=== PATIENT | male | born 1930 | race Caucasian/White ===

== ENCOUNTER 2019-04-16 07:57 | Emergency (ER) | payer MEDICARE ==
--- NOTE | 2019-04-16 08:53 | EDM.PDOC ---
ED HPI GENERAL MEDICAL PROBLEM - General Chief Complaint: Genitourinary Problem Stated Complaint: CATHETER ISSUES Time Seen by Provider: 04/16/19 08:35 Source of Information: Reports: Patient, Family, Old Records History Limitations: Reports: No Limitations - History of Present Illness INITIAL COMMENTS - FREE TEXT/NARRATIVE: 88 yo male with an indwelling crouch has not had much urine output this morning. Sent for evaluation. No significant pain, is on Cipro currently for a UTI. Onset: Today Onset Date: 04/16/19 Duration: Hour(s):, Getting Worse Location: Reports: Pelvis (bladder) Quality: Reports: Pressure (mild) Severity: Mild Improves with: Reports: None Worsens with: Reports: Other (time catheter is plugged) Context: Reports: Other (see HPI) Associated Symptoms: Reports: No Other Symptoms Treatments CANDY PACKER: Reports: Other (see below) (none) denies Pain Score (Numeric/FACES): 0 - Related Data Allergies Allergy/AdvReac Type Severity Reaction Status Date / Time No Known Allergies Allergy Verified 04/16/19 08:04 Home Meds: Home Meds Amitriptyline [Elavil] 10 mg PO BEDTIME 04/08/19 [History] Citalopram [Citalopram HBr] 20 mg PO DAILY 04/08/19 [History] Docusate Sodium [Colace] 100 mg PO BID 04/08/19 [History] Finasteride [Proscar] 5 mg PO DAILY 04/08/19 [History] Levothyroxine [Synthroid] 100 mcg PO ACBREAKFAST 04/08/19 [History] Linaclotide [Linzess] 145 mcg PO DAILY 04/08/19 [History] Metoprolol Tartrate 50 mg PO BID 04/08/19 [History] Omeprazole 20 mg PO DAILY 04/08/19 [History] Simvastatin 80 mg PO BEDTIME 04/08/19 [History] Tamsulosin [Tamsulosin 24 Hr] 0.4 mg PO BEDTIME 04/08/19 [History] Past Medical History HEENT History: Reports: Impaired Vision Cardiovascular History: Reports: High Cholesterol, Hypertension Gastrointestinal History: Reports: Chronic Constipation Genitourinary History: Reports: Prostate Disorder, Other (See Below) Other Genitourinary History: continuous crouch catheter Psychiatric History: Reports: Depression Endocrine/Metabolic History: Reports: Hypothyroidism - Infectious Disease History Infectious Disease History: Reports: Chicken Pox - Past Surgical History Head Surgeries/Procedures: Reports: None HEENT Surgical History: Reports: Tonsillectomy Cardiovascular Surgical History: Reports: Coronary Artery Bypass Endocrine Surgical History: Reports: None Dermatological Surgical History: Reports: None Social & Family History - Tobacco Use Smoking Status *Q: Never Smoker Second Hand Smoke Exposure: No - Caffeine Use Caffeine Use: Reports: Coffee - Recreational Drug Use Recreational Drug Use: No ED ROS GENERAL - Review of Systems Review Of Systems: See Below Constitutional: Reports: No Symptoms : Reports: Other (mild bladder pressure, crouch not functioning properly.) Skin: Reports: No Symptoms ED EXAM, RENAL/ - Physical Exam Exam: See Below Exam Limited By: No Limitations General Appearance: Alert, WD/WN, No Apparent Distress (Male) Exam: Other (crouch not flowing currently.) Course - Vital Signs Text/Narrative:: Nurse deflated the catheter, pushed the catheter in a bit and reinflated the catheter and the urine flow resumed. Nearly a liter of urine produced. Last Recorded V/S: Last Vital Signs Temp 36.4 C 04/16/19 08:20 Pulse 56 L 04/16/19 08:20 Resp 21 H 04/16/19 08:20 BP 162/78 H 04/16/19 08:20 Pulse Ox 96 04/16/19 08:20 Departure - Departure Time of Disposition: 08:52 Disposition: Home, Self-Care 01 Condition: Good Clinical Impression: Crouch catheter problem Qualifiers: Encounter type: initial encounter Qualified Code(s): T83.9XXA - Unspecified complication of genitourinary prosthetic device, implant and graft, initial encounter - Discharge Information *PRESCRIPTION DRUG MONITORING PROGRAM REVIEWED*: No *COPY OF PRESCRIPTION DRUG MONITORING REPORT IN PATIENT CHRISTIAN: No Referrals: Freddy Wayne MD [Primary Care Provider] - Additional Instructions: Continue present cares/plans. Recheck as needed.
== END 2019-04-16 09:13 | disposition home or self-care (01) ==
LOC: JP.ED 07:57
DX: T83.9XXA Unspecified complication of genitourinary prosthetic device, implant and graft, initial encounter (principal); I10 Essential (primary) hypertension; E78.00 Pure hypercholesterolemia, unspecified; F32.9 Major depressive disorder, single episode, unspecified; E03.9 Hypothyroidism, unspecified; Z79.899 Other long term (current) drug therapy; Z79.890 Hormone replacement therapy
CPT/HCPCS: 99282; 99283

== ENCOUNTER 2019-04-29 18:30 | Emergency (ER) | payer MEDICARE ==
[2019-04-29] MEDS ORDERED: Lidocaine 2% Jelly 10 ML Urojet MUCMEM ONE (18:42)
--- NOTE | 2019-04-29 19:19 | EDM.PDOC ---
ED HPI GENERAL MEDICAL PROBLEM - General Chief Complaint: Genitourinary Problem Stated Complaint: MEDICAL VIA [facility] Time Seen by Provider: 04/29/19 19:18 Source of Information: Reports: Patient - History of Present Illness INITIAL COMMENTS - FREE TEXT/NARRATIVE: 88 years old male patient brought in by ambulance from the assisted living because of not able to urinate after removing the Crouch catheter today. Denies any abdominal pain or discomfort. Denies any nausea or vomiting. Denies any fever. Denies any urinary symptom other than not able to urinate. Denies any diarrhea or constipation. Denies any chest pain shortness breath. Denies any cough or fever. - Related Data Allergies Allergy/AdvReac Type Severity Reaction Status Date / Time No Known Allergies Allergy Verified 04/29/19 18:44 Home Meds: Home Meds Amitriptyline [Elavil] 10 mg PO BEDTIME 04/08/19 [History] Citalopram [Citalopram HBr] 20 mg PO DAILY 04/08/19 [History] Docusate Sodium [Colace] 100 mg PO BID 04/08/19 [History] Finasteride [Proscar] 5 mg PO DAILY 04/08/19 [History] Levothyroxine [Synthroid] 100 mcg PO ACBREAKFAST 04/08/19 [History] Metoprolol Tartrate 50 mg PO BID 04/08/19 [History] Omeprazole 20 mg PO DAILY 04/08/19 [History] Simvastatin 80 mg PO BEDTIME 04/08/19 [History] Tamsulosin [Tamsulosin 24 Hr] 0.4 mg PO BEDTIME 04/08/19 [History] Ciprofloxacin HCl 250 mg PO BID 04/29/19 [History] Sertraline HCl 25 mg PO DAILY 04/29/19 [History] Past Medical History HEENT History: Reports: Impaired Vision Cardiovascular History: Reports: High Cholesterol, Hypertension Gastrointestinal History: Reports: Chronic Constipation Genitourinary History: Reports: Prostate Disorder, Other (See Below) Other Genitourinary History: continuous crouch catheter Psychiatric History: Reports: Depression Endocrine/Metabolic History: Reports: Hypothyroidism - Infectious Disease History Infectious Disease History: Reports: Chicken Pox - Past Surgical History Head Surgeries/Procedures: Reports: None HEENT Surgical History: Reports: Tonsillectomy Cardiovascular Surgical History: Reports: Coronary Artery Bypass Endocrine Surgical History: Reports: None Social & Family History - Tobacco Use Smoking Status *Q: Former Smoker Used Tobacco, but Quit: Yes Month/Year Tobacco Last Used: 35 years - Caffeine Use Caffeine Use: Reports: Coffee - Recreational Drug Use Recreational Drug Use: No ED ROS GENERAL - Review of Systems Review Of Systems: Comprehensive ROS is negative, except as noted in HPI. ED EXAM, RENAL/ - Physical Exam Exam: See Below Exam Limited By: No Limitations General Appearance: Alert, WD/WN, No Apparent Distress Nose: Normal Inspection, Normal Mucosa, No Blood Throat/Mouth: Normal Inspection, Normal Lips, Normal Teeth, Normal Gums, Normal Oropharynx, Normal Voice, No Airway Compromise Head: Atraumatic, Normocephalic Neck: Normal Inspection, Supple, Non-Tender, Full Range of Motion Respiratory/Chest: No Respiratory Distress, Lungs Clear, Normal Breath Sounds, No Accessory Muscle Use, Chest Non-Tender Cardiovascular: Normal Peripheral Pulses, Regular Rate, Rhythm, No Edema, No Gallop, No JVD, No Murmur, No Rub GI/Abdominal: Normal Bowel Sounds, Soft, Non-Tender, No Organomegaly, No Distention, No Abnormal Bruit, No Mass (Male) Exam: Normal Inspection Course - Vital Signs Last Recorded V/S: Last Vital Signs Temp 36.5 C 04/29/19 19:08 Pulse 62 04/29/19 19:08 Resp 22 H 04/29/19 19:08 BP 122/65 04/29/19 19:08 Pulse Ox 98 04/29/19 19:08 - Orders/Labs/Meds Orders: Active Orders 24 hr Category Date Time Status Crouch Catheter Insertion [Insert Urinary Catheter] [OM. Care 04/29/19 19:15 Ordered PC] Q24H Urinary Catheter Assessment [RC] ASDIRECTED Care 04/29/19 19:03 Active Labs: Laboratory Tests 04/29/19 Range/Units 19:02 Urine Color Yellow (YELLOW) Urine Appearance Cloudy A (CLEAR) Urine pH 5.5 (5.0-8.0) Ur Specific [place] 1.025 (1.008-1.030) Urine Protein 100 H (NEGATIVE) mg/dL Urine Glucose (UA) Negative (NEGATIVE) mg/dL Urine Ketones Negative (NEGATIVE) mg/dL Urine Occult Blood Large H (NEGATIVE) Urine Nitrite Negative (NEGATIVE) Urine Bilirubin Negative (NEGATIVE) Urine Urobilinogen 0.2 (0.2-1.0) EU/dL Ur Leukocyte Esterase Trace H (NEGATIVE) Urine RBC 40-50 H (0-5) Urine WBC 5-10 H (0-5) Ur Epithelial Cells Few Amorphous Sediment Few Urine Bacteria Many Urine Mucus Few Meds: Medications Discontinued Medications Generic Name Dose Route Start Last Admin Trade Name Jorge PRN Reason Stop Dose Admin Lidocaine HCl 10 ml 04/29/19 18:42 04/29/19 19:11 Xylocaine 2% Jelly MUCMEM 04/29/19 18:43 10 ml ONETIME ONE Administration - Radiology Interpretation Free Text/Narrative:: Patient was seen and examined shortly after arrival. Stable. Bladder scan shows 525 mL Crouch catheter replaced. UA reviewed. No convincing sign of infection. Advised to follow-up with his primary doctor this coming Thursday. Rest and stay well-hydrated. Come back for any concern or any worsening symptom. Patient agrees with the plan. Stable for discharge. Departure - Departure Time of Disposition: 19:45 Disposition: Home, Self-Care 01 Condition: Good Clinical Impression: Urinary retention - Discharge Information *PRESCRIPTION DRUG MONITORING PROGRAM REVIEWED*: Not Applicable *COPY OF PRESCRIPTION DRUG MONITORING REPORT IN PATIENT CHRISTIAN: Not Applicable Instructions: Acute Urinary Retention, Male Referrals: PCP,None [Primary Care Provider] - Forms: ED Department Discharge Additional Instructions: Follow-up with your primary doctor or urologist this coming Thursday Come back for any concern or any worsening symptom - My Orders Last 24 Hours: My Active Orders 04/29/19 19:03 Urinary Catheter Assessment [RC] ASDIRECTED 04/29/19 19:15 Crouch Catheter Insertion [Insert Urinary Catheter] [OM.PC] Q24H - Assessment/Plan Last 24 Hours: My Active Orders 04/29/19 19:03 Urinary Catheter Assessment [RC] ASDIRECTED 04/29/19 19:15 Crouch Catheter Insertion [Insert Urinary Catheter] [OM.PC] Q24H Plan: Advised to follow-up with his primary doctor this coming Thursday. Rest and stay well-hydrated. Come back for any concern or any worsening symptom.
== END 2019-04-29 20:30 | disposition home or self-care (01) ==
LOC: JP.ED 18:30
DX: R33.9 Retention of urine, unspecified (principal); I10 Essential (primary) hypertension; Z87.891 Personal history of nicotine dependence; Z79.899 Other long term (current) drug therapy
CPT/HCPCS: 51798; 81001; 99283

== ENCOUNTER 2019-06-01 17:21 | Emergency (ER) | payer MEDICARE ==
--- NOTE | 2019-06-01 19:29 | EDM.PDOC ---
ED HPI GENERAL MEDICAL PROBLEM - General Chief Complaint: Genitourinary Problem Stated Complaint: MED VIA [facility] Time Seen by Provider: 06/01/19 18:10 Source of Information: Reports: EMS, Provider History Limitations: Reports: Altered Mental Status, Physical Impairment - History of Present Illness INITIAL COMMENTS - FREE TEXT/NARRATIVE: Patient has fairly significant agitation and dementia, his history from the patient is inconsistent. Apparently he was sent in because of persistent bleeding through his Crouch catheter for the past 3 days. There is no mention of obstruction. The patient himself has no symptoms. The urology department was called and he was sent in for "at least blood tests, a bladder and kidney ultrasound and minimum". He had a laser procedure on his prostate 1 month ago. He is not on anticoagulants. He has no fever or chills, no nausea or vomiting. Onset: Unknown/Unsure (Apparently has been bleeding for the past 2 to 3 days) Associated Symptoms: Reports: No Other Symptoms - Related Data Allergies Allergy/AdvReac Type Severity Reaction Status Date / Time No Known Allergies Allergy Verified 06/01/19 17:31 Home Meds: Home Meds Amitriptyline [Elavil] 10 mg PO BEDTIME 04/08/19 [History] Citalopram [Citalopram HBr] 10 mg PO DAILY 04/08/19 [History] Docusate Sodium [Colace] 100 mg PO BID 04/08/19 [History] Finasteride [Proscar] 5 mg PO DAILY 04/08/19 [History] Levothyroxine [Synthroid] 100 mcg PO ACBREAKFAST 04/08/19 [History] Metoprolol Tartrate 50 mg PO BID 04/08/19 [History] Omeprazole 20 mg PO DAILY 04/08/19 [History] Simvastatin 80 mg PO BEDTIME 04/08/19 [History] Tamsulosin [Tamsulosin 24 Hr] 0.4 mg PO BEDTIME 04/08/19 [History] Sertraline HCl 50 mg PO DAILY 04/29/19 [History] Acetaminophen [Tylenol Extra Strength] 500 mg PO BEDTIME PRN 06/01/19 [History] Cefdinir 300 mg PO Q12HR 06/01/19 [History] Hydrocodone/Acetaminophen [Hydrocodon-Acetaminophen 5-325] 1 tab PO Q4H PRN 01/11 [History] Linaclotide [Linzess] 145 mcg PO DAILY 06/01/19 [History] Sennosides/Docusate Sodium [Senna-S] 1 tab PO BID PRN 06/01/19 [History] Sennosides/Docusate Sodium [Senna-S] 1 tab PO Q12H 06/01/19 [History] Past Medical History HEENT History: Reports: Impaired Vision Cardiovascular History: Reports: High Cholesterol, Hypertension Gastrointestinal History: Reports: Chronic Constipation Genitourinary History: Reports: Prostate Disorder, Other (See Below) Other Genitourinary History: continuous crouch catheter Psychiatric History: Reports: Depression Endocrine/Metabolic History: Reports: Hypothyroidism - Infectious Disease History Infectious Disease History: Reports: Chicken Pox - Past Surgical History Head Surgeries/Procedures: Reports: None HEENT Surgical History: Reports: Tonsillectomy Cardiovascular Surgical History: Reports: Coronary Artery Bypass Respiratory Surgical History: Reports: None GI Surgical History: Reports: None Male Surgical History: Reports: TURP-Transurethral Resection of Prostate Endocrine Surgical History: Reports: None Dermatological Surgical History: Reports: None Social & Family History - Family History Family Medical History: Noncontributory - Tobacco Use Smoking Status *Q: Former Smoker Years of Tobacco use: 25 Packs/Tins Daily: 2 Used Tobacco, but Quit: Yes Month/Year Tobacco Last Used: 1969 - Caffeine Use Caffeine Use: Reports: Coffee, Soda, Tea - Recreational Drug Use Recreational Drug Use: No ED ROS GENERAL - Review of Systems Review Of Systems: See Below Constitutional: Denies: Fever, Chills, Malaise Respiratory: Denies: Shortness of Breath Cardiovascular: Denies: Chest Pain GI/Abdominal: Denies: Abdominal Pain, Nausea, Vomiting : Reports: Hematuria Skin: Reports: No Symptoms ED EXAM, RENAL/ - Physical Exam Exam: See Below Exam Limited By: No Limitations General Appearance: Alert, No Apparent Distress, Anxious, Other (Patient is agitated and angry he is here) Respiratory/Chest: No Respiratory Distress, Lungs Clear Cardiovascular: Regular Rate, Rhythm GI/Abdominal: Soft, Non-Tender, Other (No bladder distention is felt) Neurological: Alert Skin Exam: Warm, Dry Course - Vital Signs Last Recorded V/S: Last Vital Signs Temp 97.6 F 06/01/19 17:27 Pulse 55 L 06/01/19 17:30 Resp 16 06/01/19 17:30 BP 131/62 06/01/19 17:30 Pulse Ox 98 06/01/19 17:30 - Orders/Labs/Meds Labs: Laboratory Tests 06/01/19 06/01/19 Range/Units 19:16 19:16 WBC 11.5 H (4.5-11.0) K/uL RBC 4.72 (4.30-5.90) M/uL Hgb 13.6 (12.0-15.0) g/dL Hct 40.6 (40.0-54.0) % MCV 86 (80-98) fL MCH 29 (27-31) pg MCHC 34 (32-36) % Plt Count 305 (150-400) K/uL Neut % (Auto) 60 (36-66) % Lymph % (Auto) 29 (24-44) % [place] % (Auto) 6 (2-6) % Eos % (Auto) 4 (2-4) % Baso % (Auto) 1 (0-1) % Sodium 138 L (140-148) mmol/L Potassium 4.0 (3.6-5.2) mmol/L Chloride 104 (100-108) mmol/L Carbon Dioxide 21 (21-32) mmol/L Anion Gap 17.0 H (5.0-14.0) mmol/L BUN 25 H (7-18) mg/dL Creatinine 1.3 (0.8-1.3) mg/dL Est Cr Clr Drug Dosing 45.24 mL/min Estimated GFR (MDRD) 52 L (>60) Glucose 122 H (74-106) mg/dL Calcium 9.2 (8.5-10.1) mg/dL - Re-Assessments/Exams Free Text/Narrative Re-Assessment/Exam: 06/01/19 19:27 Crouch bag had almost 300 cc of red urine, this was emptied and within 20 minutes there was another 25 to 30 cc of urine. No obvious clots but there was definite hematuria. A bladder scan was done and the bladder is empty. CBC and BMP were obtained, but I felt uncomfortable changing the Crouch or ordering ultrasounds as this is fairly typical after procedure and if his Crouch is draining nothing else should really need to be done. I talked to urology in [place] and they agreed. We now have to find a way to get him back. 06/01/19 19:29 Hemoglobin is normal at 13.6, white count is normal. 06/01/19 19:34 Creatinine is 1.3, GFR 52 these are very consistent with past readings. Patient will be sent back to [facility] [place] and they will contact urology tomorrow to set up a physician visit. He can return if his Crouch becomes plugged and cannot be irrigated. Departure - Departure Time of Disposition: 20:34 Disposition: DC/Tfer to [facility] Clinical Impression: Hematuria syndrome - Discharge Information Instructions: Hematuria, Adult Referrals: PCP,None [Primary Care Provider] - Forms: ED Department Discharge Care Plan Goals: Allow the Crouch to drain as long as it does not become obstructed. If obstructed, flushing can be attempted and if unsuccessful and patient becomes uncomfortable return for Crouch placement. Otherwise contact urology in the next day or 2 to set up an appointment for recheck. Hemoglobin is 13.6, white count is normal and kidney function is stable. Sepsis Event Note - Evaluation Sepsis Screening Result: No Definite Risk - Focused Exam Vital Signs: Vital Signs Temp Pulse Resp BP Pulse Ox 06/01/19 17:30 55 L 16 131/62 98 06/01/19 17:27 97.6 F 56 L 16 131/62 96 Date Exam was Performed: 06/01/19 Time Exam was Performed: 20:42
== END 2019-06-01 20:32 ==
LOC: JP.ED 17:21
DX: R31.9 Hematuria, unspecified (principal); E78.00 Pure hypercholesterolemia, unspecified; I10 Essential (primary) hypertension; E03.9 Hypothyroidism, unspecified; N42.9 Disorder of prostate, unspecified; F32.9 Major depressive disorder, single episode, unspecified; Z79.899 Other long term (current) drug therapy; Z79.890 Hormone replacement therapy; Z87.891 Personal history of nicotine dependence
CPT/HCPCS: 36415; 51798; 80048; 85025; 99282; 99285

== ENCOUNTER 2019-07-01 15:34 | Emergency (ER) | payer MEDICARE ==
--- NOTE | 2019-07-01 17:18 | EDM.PDOC ---
ED HPI GENERAL MEDICAL PROBLEM - General Chief Complaint: Neuro Symptoms/Deficits Stated Complaint: confusion Time Seen by Provider: 07/01/19 16:00 Source of Information: Reports: Patient, EMS History Limitations: Reports: No Limitations - History of Present Illness INITIAL COMMENTS - FREE TEXT/NARRATIVE: Patient was found in a local business parking lot confused trying to find his vehicle. He was cold, chilled, and had forgotten where he parked his car. He has had episodes of confusion in the past. He is stable, afebrile, and has no other specific complaints. When EMS arrived he was very anxious, had not fallen or hurt himself. Onset: Unknown/Unsure Associated Symptoms: Reports: Confusion, Weakness. Denies: Chest Pain, Cough, Malaise, Nausea/Vomiting - Related Data Allergies Allergy/AdvReac Type Severity Reaction Status Date / Time No Known Allergies Allergy Verified 07/01/19 15:52 Home Meds: Home Meds Amitriptyline [Elavil] 10 mg PO BEDTIME 04/08/19 [History] Citalopram [Citalopram HBr] 10 mg PO DAILY 04/08/19 [History] Docusate Sodium [Colace] 100 mg PO BID 04/08/19 [History] Finasteride [Proscar] 5 mg PO DAILY 04/08/19 [History] Levothyroxine [Synthroid] 100 mcg PO ACBREAKFAST 04/08/19 [History] Metoprolol Tartrate 50 mg PO BID 04/08/19 [History] Omeprazole 20 mg PO DAILY 04/08/19 [History] Simvastatin 80 mg PO BEDTIME 04/08/19 [History] Tamsulosin [Tamsulosin 24 Hr] 0.4 mg PO BEDTIME 04/08/19 [History] Sertraline HCl 50 mg PO DAILY 04/29/19 [History] Acetaminophen [Tylenol Extra Strength] 500 mg PO BEDTIME PRN 06/01/19 [History] Cefdinir 300 mg PO Q12HR 06/01/19 [History] Hydrocodone/Acetaminophen [Hydrocodon-Acetaminophen 5-325] 1 tab PO Q4H PRN 01/11 [History] Linaclotide [Linzess] 145 mcg PO DAILY 06/01/19 [History] Sennosides/Docusate Sodium [Senna-S] 1 tab PO BID PRN 06/01/19 [History] Past Medical History HEENT History: Reports: Impaired Vision Cardiovascular History: Reports: High Cholesterol, Hypertension Gastrointestinal History: Reports: Chronic Constipation Genitourinary History: Reports: Prostate Disorder, Other (See Below) Other Genitourinary History: continuous crouch catheter Psychiatric History: Reports: Depression Endocrine/Metabolic History: Reports: Hypothyroidism - Infectious Disease History Infectious Disease History: Reports: Chicken Pox - Past Surgical History Head Surgeries/Procedures: Reports: None HEENT Surgical History: Reports: Tonsillectomy Cardiovascular Surgical History: Reports: Coronary Artery Bypass Respiratory Surgical History: Reports: None GI Surgical History: Reports: None Male Surgical History: Reports: TURP-Transurethral Resection of Prostate Endocrine Surgical History: Reports: None Dermatological Surgical History: Reports: None Social & Family History - Family History Family Medical History: Noncontributory - Tobacco Use Smoking Status *Q: Never Smoker - Caffeine Use Caffeine Use: Reports: Coffee, Soda, Tea ED ROS GENERAL - Review of Systems Review Of Systems: See Below Constitutional: Reports: Weakness. Denies: Fever, Chills, Malaise Respiratory: Denies: Shortness of Breath Cardiovascular: Denies: Chest Pain GI/Abdominal: Denies: Abdominal Pain, Nausea, Vomiting Skin: Denies: Bruising Neurological: Reports: Confusion. Denies: Headache Psychiatric: Reports: Anxiety ED EXAM, GENERAL - Physical Exam Exam: See Below Exam Limited By: No Limitations General Appearance: Alert, No Apparent Distress Eye Exam: Bilateral Eye: EOMI Head: Atraumatic Neck: Supple, Non-Tender Respiratory/Chest: Lungs Clear Cardiovascular: Regular Rate, Rhythm GI/Abdominal: Soft, Non-Tender Extremities: Other (Trace symmetric edema) Neurological: Oriented (Does seem to have to think about his answers when asked questions but he is oriented) Psychiatric: Normal Affect, Normal Mood Skin Exam: Warm, Dry Course - Vital Signs Last Recorded V/S: Last Vital Signs Temp 96.2 F 07/01/19 15:59 Pulse 83 07/01/19 17:04 Resp 20 07/01/19 17:04 BP 139/72 07/01/19 17:04 Pulse Ox 92 L 07/01/19 17:04 - Orders/Labs/Meds Labs: Laboratory Tests 07/01/19 07/01/19 Range/Units 15:53 15:53 WBC 19.2 H (4.5-11.0) K/uL RBC 4.76 (4.30-5.90) M/uL Hgb 13.3 (12.0-15.0) g/dL Hct 40.6 (40.0-54.0) % MCV 85 (80-98) fL MCH 28 (27-31) pg MCHC 33 (32-36) % Plt Count 347 (150-400) K/uL Neut % (Auto) 84 H (36-66) % Lymph % (Auto) 8 L (24-44) % [place] % (Auto) 7 H (2-6) % Eos % (Auto) 1 L (2-4) % Baso % (Auto) 0 (0-1) % Sodium 139 L (140-148) mmol/L Potassium 4.9 (3.6-5.2) mmol/L Chloride 105 (100-108) mmol/L Carbon Dioxide 22 (21-32) mmol/L Anion Gap 16.9 H (5.0-14.0) mmol/L BUN 37 H (7-18) mg/dL Creatinine 1.8 H (0.8-1.3) mg/dL Est Cr Clr Drug Dosing 33.62 mL/min Estimated GFR (MDRD) 36 L (>60) Glucose 163 H (74-106) mg/dL Calcium 9.6 (8.5-10.1) mg/dL - Re-Assessments/Exams Free Text/Narrative Re-Assessment/Exam: 07/01/19 17:36 White count was elevated somewhat, probably from acute anxiety as the rest of his labs were reassuring. He was monitored for close to an hour, blood pressure which was low on arrival normalized. He did not develop any symptoms. He was able to ambulate with assistance and was asking to go home. Departure - Departure Time of Disposition: 17:37 Disposition: DC/Tfer to [facility] Clinical Impression: Confusion - Discharge Information Instructions: Confusion Referrals: PCP,None [Primary Care Provider] - Forms: ED Department Discharge Care Plan Goals: Continue your current medications and increase activity as tolerated. Return if you develop more symptoms such as shortness of breath or fever. Sepsis Event Note - Evaluation Sepsis Screening Result: No Definite Risk - Focused Exam Vital Signs: Vital Signs Temp Pulse Resp BP Pulse Ox 07/01/19 17:04 83 20 139/72 92 L 07/01/19 16:40 57 L 85/55 L 98 07/01/19 16:12 63 20 92/62 98 07/01/19 15:59 96.2 F 61 22 H 90/54 L 98 07/01/19 15:38 96.2 F 61 22 H 90/54 L 98 Date Exam was Performed: 07/01/19 Time Exam was Performed: 17:35
== END 2019-07-01 17:40 ==
LOC: JP.ED 15:34
DX: R41.0 Disorientation, unspecified (principal); E78.00 Pure hypercholesterolemia, unspecified; I10 Essential (primary) hypertension; F32.9 Major depressive disorder, single episode, unspecified; E03.9 Hypothyroidism, unspecified; Z79.899 Other long term (current) drug therapy
CPT/HCPCS: 36415; 80048; 85025; 99282; 99285

== ENCOUNTER 2020-11-20 15:29 | Emergency (ER) | payer MEDICARE ==
--- NOTE | 2020-11-20 15:47 | EDM.PDOC ---
<Swati Apodaca - Last Filed: 11/20/20 18:22> ED HPI GENERAL MEDICAL PROBLEM - General Chief Complaint: Lower Extremity Injury/Pain Stated Complaint: FELL Time Seen by Provider: 11/20/20 15:35 Source of Information: Reports: Patient History Limitations: Reports: No Limitations - History of Present Illness INITIAL COMMENTS - FREE TEXT/NARRATIVE: 89 year old male presents from his [facility] after a fall injury today. He reports that he was walking with his walker and "it got away from him" and he fell/ "pancaked" onto his right hip. No obvious deformity, but mild external rotation and mild shortening to right lower extremity. He reports pain in the right hip with flexion and external rotation. 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 Denies hitting his head, denies syncope, no LOC, does not use blood thinning medication. He reports no other pain or injury. Has not been able to bare weight after the fall. Onset: Today Onset Date: 11/20/20 Duration: Hour(s): Location: Reports: Other (right hip pain post fall) Severity: Moderate Improves with: Reports: Immobilization, Rest Worsens with: Reports: Movement Context: Reports: Activity Associated Symptoms: Reports: No Other Symptoms - Related Data Allergies Allergy/AdvReac Type Severity Reaction Status Date / Time No Known Allergies Allergy Verified 11/20/20 16:08 Home Meds: Home Meds Finasteride [Proscar] 5 mg PO DAILY 04/08/19 [History] Levothyroxine [Synthroid] 100 mcg PO ACBREAKFAST 04/08/19 [History] Metoprolol Tartrate 25 mg PO BID 04/08/19 [History] Omeprazole 20 mg PO DAILY 04/08/19 [History] Simvastatin 80 mg PO BEDTIME 04/08/19 [History] Sertraline HCl 75 mg PO DAILY 04/29/19 [History] Acetaminophen [Tylenol Extra Strength] 500 mg PO BEDTIME PRN 06/01/19 [History] Sennosides/Docusate Sodium [Senna-S] 1 tab PO BID PRN 06/01/19 [History] OXcarbazepine [Trileptal] 75 mg PO BID 06/18/20 [History] Loperamide HCl [Loperamide] 2 mg PO QID PRN 09/24/20 [History] Magnesium Hydroxide [Milk of Magnesia] 30 ml PO BEDTIME PRN 09/24/20 [History] buPROPion [Wellbutrin SR] 100 mg PO DAILY 09/24/20 [History] Past Medical History HEENT History: Reports: Impaired Vision Cardiovascular History: Reports: High Cholesterol, Hypertension Gastrointestinal History: Reports: Chronic Constipation Genitourinary History: Reports: Prostate Disorder, Other (See Below) Other Genitourinary History: continuous crouch catheter Musculoskeletal History: Reports: Other (See Below) Other Musculoskeletal History: L knee pain Neurological History: Reports: Alzheimers Disease Psychiatric History: Reports: Dementia, Depression Endocrine/Metabolic History: Reports: Hypothyroidism - Infectious Disease History Infectious Disease History: Reports: Chicken Pox - Past Surgical History Head Surgeries/Procedures: Reports: None HEENT Surgical History: Reports: Tonsillectomy Cardiovascular Surgical History: Reports: Coronary Artery Bypass Respiratory Surgical History: Reports: None GI Surgical History: Reports: None Male Surgical History: Reports: TURP-Transurethral Resection of Prostate Endocrine Surgical History: Reports: None Musculoskeletal Surgical History: Reports: None Dermatological Surgical History: Reports: None Social & Family History - Family History Family Medical History: No Pertinent Family History - Tobacco Use Tobacco Use Status *Q: Never Tobacco User - Caffeine Use Caffeine Use: Reports: Coffee Review of Systems - Review of Systems Review Of Systems: See Below Constitutional: Reports: No Symptoms. Denies: Chills, Diaphoresis, Fever Eyes: Reports: No Symptoms. Denies: Blurred Vision Ears: Reports: No Symptoms. Denies: Dizziness Nose: Reports: No Symptoms. Denies: Congestion Mouth/Throat: Reports: No Symptoms Respiratory: Reports: No Symptoms. Denies: Shortness of Breath Cardiovascular: Reports: No Symptoms. Denies: Chest Pain GI/Abdominal: Reports: No Symptoms. Denies: Abdominal Pain, Bloody Stool, Diarrhea, Nausea, Vomiting Genitourinary: Reports: No Symptoms Musculoskeletal: Reports: No Symptoms. Denies: Neck Pain, Shoulder Pain, Arm Pain, Back Pain Skin: Reports: No Symptoms. Denies: Bruising, Wound Neurological: Reports: No Symptoms. Denies: Confusion, Dizziness, Headache, Numbness, Syncope, Gait Disturbance Psychiatric: Reports: No Symptoms. Denies: Confusion ED EXAM, GENERAL - Physical Exam Exam: See Below Free Text/Narrative:: Patient is resting on cart with right sided hip pain. Pain with external rot ation and flexion. mild shortening, mild external rotation, no swelling noted. No deformity observed. CMS+. No other traumatic injuries noted, abrasions, skin tears, lacerations. Patient is mentating at baseline, alert and oriented. Skin is warm and dry. He does not appear to be in distress at this time. Exam Limited By: No Limitations General Appearance: Alert, WD/WN, No Apparent Distress Throat/Mouth: Normal Inspection, No Airway Compromise Head: Atraumatic. No: Facial Swelling Neck: Normal Inspection, Non-Tender Respiratory/Chest: No Respiratory Distress, Normal Breath Sounds, Chest Non- Tender Cardiovascular: Normal Peripheral Pulses GI/Abdominal: Soft, Non-Tender. No: Distended, Guarding Extremities: Limited Range of Motion, Other (limited range of motion to right lower extremity post fall, unable to bare weight. CMS+) Neurological: Alert, Oriented, Normal Cognition, Normal Reflexes. No: Confused, Memory Loss Recent Events Psychiatric: Normal Affect, Normal Mood Skin Exam: Warm, Dry, Intact Lymphatic: No Adenopathy Course - Vital Signs Text/Narrative:: Hip and Pelvic xray ordered, patient agrees with plan of care at this time. Does not report needing anything for pain control. - Re-Assessments/Exams Free Text/Narrative Re-Assessment/Exam: 11/20/20 16:07 Consult to Arianna Kolb with recommendation to consult hospitalist. No beds at this time so needing to transfer this patient. Departure - Departure Time of Disposition: 18:17 Disposition: DC/Tfer to Acute Hospital 02 Condition: Good Clinical Impression: Hip fracture, right Qualifiers: Encounter type: initial encounter Fracture type: closed Qualified Code(s): S72.001A - Fracture of unspecified part of neck of right femur, initial encounter for closed fracture - Discharge Information Referrals: PCP,None [Primary Care Provider] - Forms: ED Department Discharge Care Plan Goals: patient was transferred via ems to orthopedics for right hip fracture. Stable at time of departure Sepsis Event Note (ED) - Evaluation Sepsis Screening Result: No Definite Risk <Sergo Ayoub - Last Filed: 11/21/20 16:13> Course - Vital Signs Last Recorded V/S: Last Vital Signs Temp 97.6 F 11/20/20 15:38 Pulse 67 11/20/20 18:00 Resp 18 11/20/20 17:16 BP 119/57 L 11/20/20 18:00 Pulse Ox 97 11/20/20 18:00 - Orders/Labs/Meds Meds: Medications Discontinued Medications Generic Name Dose Route Start Last Admin Trade Name Jorge PRN Reason Stop Dose Admin Fentanyl 25 mcg 11/20/20 17:23 11/20/20 17:30 Fentanyl 100 Mcg/2 Ml Sdv IVPUSH 11/20/20 17:24 25 mcg ONETIME ONE Administration Fentanyl 50 mcg 11/20/20 17:51 11/20/20 17:58 Fentanyl 100 Mcg/2 Ml Sdv IVPUSH 11/20/20 17:52 50 mcg ONETIME ONE Administration Haloperidol Lactate 2.5 mg 11/20/20 17:23 11/20/20 17:29 Haloperidol Lactate 5 Mg/Ml Sdv IVPUSH 11/20/20 17:24 2.5 mg ONETIME ONE Administration - Re-Assessments/Exams Free Text/Narrative Re-Assessment/Exam: 11/20/20 17:22 Patient was accepted in [place] to admit for further investigation of likely subcapsular fracture of the right hip. Patient became somewhat anxious prior to transfer, he was given 25 mcg of fentanyl and 2.5 mg of IV Haldol for sedation. Attestation - Student - Attestation Statement Attestation Statement: I personally performed or re-performed the physical examination and medical decision making. I have verified all student documentation or findings, including history, physical exam and/or medical decision making.
--- NOTE | 2020-11-20 16:07 | CR ---
Hip Min 2V or 3V w Pelvis Rt CLINICAL HISTORY: Pain, fall FINDINGS: There is some deformity of the subcapital region of the right femur. Chronology of this is uncertain. This may be from old injury. Impaction fracture is felt less likely but not excluded. Barium and obscures some pelvic detail IMPRESSION: Deformity of the subcapital region of the right femur of uncertain chronology. Previous impaction fracture is not excluded. 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
[2020-11-20] MEDS ORDERED: fentaNYL 100 MCG/2 ML SDV IVPUSH ONE ×2 (17:23→17:51)
[2020-11-20] MEDS ORDERED: Haloperidol Lactate 5 MG/ML SDV IVPUSH ONE (17:23)
== END 2020-11-20 18:17 ==
LOC: JP.ED 15:29
DX: S72.091A Other fracture of head and neck of right femur, initial encounter for closed fracture (principal); E78.00 Pure hypercholesterolemia, unspecified; I10 Essential (primary) hypertension; E03.9 Hypothyroidism, unspecified; Z79.899 Other long term (current) drug therapy; W18.39XA Other fall on same level, initial encounter; Y92.129 Unspecified place in nursing home as the place of occurrence of the external cause
CPT/HCPCS: 73502; 96374; 96375; 99284; 99285; J1630; J3010